=== PATIENT | female | born 1965 | race Caucasian/White ===

== ENCOUNTER → 2016-08-17 | Outpatient (CLI) | payer BC ==
--- NOTE | 2016-08-19 16:05 | CR ---
EXAM DATE: 08/17/16 PATIENT'S AGE: 50 Patient: NANCY ARMSTRONG Facility: [place], [place] Site . Site : 1965 Study: XRay Chest [id number]/28/2017 9:00:15 AM Ordering Physician: Yogesh Mcdonnell Final Report: CLINICAL INDICATION: Asthma. Comparison: 10/26/2015. Findings: There is a small cluster of calcified granulomata within the left upper lobe. The lungs are otherwise clear. The heart is normal in size. The pulmonary vasculature and pleural surfaces appear normal. There is mild degenerative spurring of the mid and lower thoracic spine. Impression: No acute process identified. Dictated by Jake Robert MD @ Aug 17 2016 9:10AM (Electronic Signature) Report Signed by Proxy. RADHA
== END ==
LOC: MW.CHFP 08:32
PROVIDERS: ATTEND Family Medicine
DX: J45.909 Unspecified asthma, uncomplicated (principal)
CPT/HCPCS: 71020; 71020-26

== ENCOUNTER 2017-01-04 10:43 | Day surgery (SDC) | payer BC ==
[~2017-01-04 10:43] MED LIST: Lactated Ringers 1,000 ML IV SCH; Midazolam 1 MG/ML 2 ML SDV ONE; Propofol 200 MG/20 ML SDV ONE
--- NOTE | 2017-01-04 11:31 | PCM.PREANE ---
Preanesthetic Assessment - Anesthesia/Transfusion/Family Hx Anesthesia History: Prior Anesthesia Without Reaction Family History of Anesthesia Reaction: No Transfusion History: No Prior Transfusion(s) - Review of Systems General: No Symptoms Pulmonary: No Symptoms Cardiovascular: No Symptoms Gastrointestinal: No Symptoms Neurological: No Symptoms Other: Reports: None - Physical Assessment NPO Status Date: 01/03/17 O2 Sat by Pulse Oximetry: 98 Respiratory Rate: 14 Vital Signs: Last Vital Signs Temp 36 C 01/04/17 10:54 Pulse 92 01/04/17 10:54 Resp 14 01/04/17 10:54 BP 128/70 01/04/17 10:54 Pulse Ox 98 01/04/17 10:54 Height: 1.65 m Weight: 67.132 kg ASA Class: 2 Mental Status: Alert & Oriented x3 Airway Class: Mallampati = 2 Dentition: Reports: Normal Dentition ROM/Head Extension: Full Lungs: Clear to Auscultation, Normal Respiratory Effort Cardiovascular: Regular Rate, Regular Rhythm - Allergies Allergies/Adverse Reactions: Allergies Allergy/AdvReac Type Severity Reaction Status Date / Time No Known Allergies Allergy Verified 10/20/13 13:48 - Anesthesia Plan Pre-Op Medication Ordered: None - Acknowledgements Anesthesia Type Planned: MAC Pt an Appropriate Candidate for the Planned Anesthesia: Yes Alternatives and Risks of Anesthesia Discussed w Pt/Guardian: Yes Pt/Guardian Understands and Agrees with Anesthesia Plan: Yes PreAnesthesia Questionnaire - Past Health History Medical/Surgical History: Denies Medical/Surgical History HEENT History: Reports: Other (See Below) Other HEENT History: wears glasses, chronic sinusitis Gastrointestinal History: Reports: None Genitourinary History: Reports: None 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: Psychiatric History: Reports: Anxiety - Past Surgical History Head Surgeries/Procedures: Reports: None GI Surgical History: Reports: Appendectomy Female Surgical History: Reports: Endometrial Ablation - SUBSTANCE USE Smoking Status *Q: Current Every Day Smoker Tobacco Use Within Last Twelve Months: Cigarettes Second Hand Smoke Exposure: Yes Days Per Week of Alcohol Use: 0 Recreational Drug Use History: No - HOME MEDS Home Medications: Home Meds Biotin 1,000 mcg PO DAILY 01/02/17 [History] Divehi Ginseng Root Extract [Ginseng Extract] 2 tab PO ASDIRECTED 01/02/17 [ History] Multivitamin [One Daily Multivitamin] 1 tab PO DAILY 01/02/17 [History] - CURRENT (IN HOUSE) MEDS Current Meds: Current Medications Lactated Ringer's (Ringers, Lactated) 1,000 mls @ 125 mls/hr IV ASDIRECTED [facility] Last Admin: 01/04/17 11:00 Dose: 125 mls/hr Discontinued Medications Midazolam HCl (Versed 1 Mg/Ml) Confirm Administered Dose 2 mg .ROUTE .STK-MED ONE Stop: 01/04/17 07:15 Propofol (Diprivan 20 Ml) Confirm Administered Dose 400 mg .ROUTE .STK-MED ONE Stop: 01/04/17 07:15
[2017-01-04] MEDS ORDERED: Lidocaine 2% 5 ML SDV ONE (12:40)
[2017-01-04] MEDS ORDERED: Propofol 200 MG/20 ML SDV ONE (13:08)
--- NOTE | 2017-01-04 13:18 | PCM.OPNOTE ---
- General Post-Op/Procedure Note Date of Surgery/Procedure: 01/04/17 Operative Procedure(s): Colonoscopy Pre Op Diagnosis: Desire for colorectal cancer screening Post-Op Diagnosis: No evidence of neoplasia Anesthesia Technique: MAC (ASA II) Primary Surgeon: Michael Jama Director Dance: Liliana Hernandez Condition: Good Free Text/Narrative:: Dictation [id number] CPT CODE [id number]
--- NOTE | 2017-01-04 13:27 | PCM.POSTAN ---
POST ANESTHESIA ASSESSMENT - MENTAL STATUS Mental Status: Alert, Oriented - RESPIRATORY Respiratory Status: Respiratory Rate WNL, Airway Patent, O2 Saturation Stable - CARDIOVASCULAR CV Status: Pulse Rate WNL, Blood Pressure Stable - GASTROINTESTINAL GI Status: No Symptoms - POST OP HYDRATION Hydration Status: Adequate & Stable
--- NOTE | 2017-01-04 13:28 | PCM48HPAN ---
Post Anesthesia Note - EVALUATION WITHIN 48HRS OF ANESTHETIC Vital Signs in Normal Range: Yes Patient Participated in Evaluation: Yes Respiratory Function Stable: Yes Airway Patent: Yes Cardiovascular Function Stable: Yes Hydration Status Stable: Yes Pain Control Satisfactory: Yes Nausea and Vomiting Control Satisfactory: Yes Mental Status Recovered: Yes
[2017-01-04] MEDS ORDERED: Lactated Ringers 1,000 ML IV SCH (13:30)
--- NOTE | 2017-01-04 13:59 | PCM.SN ---
- Free Text/Narrative Note: pt c/o L eye pain since awakening. has lateral schleral/conjunctival irritation , lids everted. no fb/lash visible. No gross abraision noted to gross inspr= ection. No fluroscein exam done. advised should heal in 24 hr. should be seen in 24 hr if not gone. offered antibiotic ointment, declined.
--- NOTE | 2017-01-04 18:51 | OR ---
SURGEON: Michael Jama M.D. DATE OF PROCEDURE: 01/04/2017 OPERATION PERFORMED: Colonoscopy. ANESTHESIA: MAC. ASA CLASSIFICATION: II. PREOPERATIVE DIAGNOSIS: Desire for colorectal cancer screening. POSTOPERATIVE DIAGNOSIS: No evidence of neoplasia. DESCRIPTION OF PROCEDURE: The patient was taken to the endoscopy room and positioned on the endoscopy table in the left lateral decubitus position. Time-out was called for appropriate identification of patient and procedure. Monitored anesthesia care was provided. The colonoscope was inserted into the rectum and advanced without difficulty to the cecum where the colonoscope was retroflexed to visualize the ascending colon from below. The colonoscope was then straightened and slowly withdrawn. The cecum, ascending colon, hepatic flexure, transverse colon, splenic flexure, descending colon, sigmoid colon, and rectum were very well visualized. No tumors, polyps, diverticula, or angiodysplastic changes were identified. There was no evidence of inflammatory bowel disease. Once the colonoscope was withdrawn to the rectum, it was retroflexed to visualize the anal orifice from above. No tumors or polyps were seen and there were no acute hemorrhoidal changes. The colonoscope was then straightened, the rectum aspirated, and the colonoscope removed. The patient tolerated the procedure well and was taken to recovery room in stable condition. CHELITA / LAXMI /[id number]
== END 2017-01-04 13:44 | disposition home or self-care (01) ==
LOC: MW.SDS 10:43
PROVIDERS: ATTEND Surgery
PROC: 0DJD8ZZ Inspection of Lower Intestinal Tract, Via Natural or Artificial Opening Endoscopic (ICD-10-PCS; principal; 2017-01-04)
DX: Z12.11 Encounter for screening for malignant neoplasm of colon (principal); J30.9 Allergic rhinitis, unspecified; L65.9 Nonscarring hair loss, unspecified; E78.5 Hyperlipidemia, unspecified; M85.849 Other specified disorders of bone density and structure, unspecified hand; J32.9 Chronic sinusitis, unspecified; Z79.899 Other long term (current) drug therapy; Z79.52 Long term (current) use of systemic steroids; F41.9 Anxiety disorder, unspecified; Z98.890 Other specified postprocedural states; F17.210 Nicotine dependence, cigarettes, uncomplicated
CPT/HCPCS: 45378; J2250; J7120; 00810; J2704

== ENCOUNTER 2020-06-09 17:05 | Emergency (ER) | payer BC ==
[2020-06-09] MEDS ORDERED: Sodium Chloride 0.9% 10 ML Syringe FLUSH PRN (18:02)
[2020-06-09] MEDS ORDERED: Sodium Chloride 0.9% 2.5 ML Syringe FLUSH PRN (18:02)
[2020-06-09 18:42] LABS: BLOOD UREA NITROGEN,BUN 9 mg/dL (7.0-18.0); CARBON DIOXIDE,CO2 23.2 mmol/L (21.0-32.0); CHLORIDE,CL 93 mmol/L (98-107); GLUCOSE RANDOM 86 mg/dL (74-106); POTASSIUM,K 3.1 mmol/L (3.5-5.1); SODIUM,NA 130 mmol/L (136-145)
--- NOTE | 2020-06-09 19:04 | EDM.PDOC ---
ED HPI GENERAL MEDICAL PROBLEM - General Chief Complaint: ENT Problem Stated Complaint: SWOLLEN LYMPH NODES Time Seen by Provider: 06/09/20 17:29 Source of Information: Reports: Patient History Limitations: Reports: No Limitations - History of Present Illness INITIAL COMMENTS - FREE TEXT/NARRATIVE: HISTORY AND PHYSICAL: History of present illness: Patient is 54-year-old female presenting with swelling around right cheek that started today after eating a cookie. She reports the pain is worse with touching the area or eating. Patient reports salivary stones on the right side last occurring 15 years ago. Patient also reports MICHELLE for which she takes an unknown "antidepressant." Patient's surgical history is significant for wisdom teeth removal on the right side and deviated septum repair "a long time ago." Patient reports using warm compresses and "8 Aleve today" without palliation of pain. Patient denies fever, chills, chest pain, shortness of breath, or cough. Denies headache, neck stiff ness, change in vision, syncope, or near syncope. Denies nausea, vomiting, abdominal pain, diarrhea, constipation, or dysuria. Has not noted any blood in urine or stool. Patient has been eating and drinking appropriately. Review of systems: As per history of present illness and below otherwise all systems reviewed and negative. Past medical history: As per history of present illness and as reviewed below otherwise noncontributory. Surgical history: As per history of present illness and as reviewed below otherwise noncontributory. Social history: See social history for further information Family history: As per history of present illness and as reviewed below otherwise noncontributory. Physical exam: General: Patient is alert, oriented, and in no acute distress. Patient sitting comfortably on exam table. Vitals are significant for slight hypertension, otherwise, stable and reviewed by me HEENT: There is mild-moderate edema of the preauricular area that extends down into the mandible that is tender to palpation. Atraumatic, normocephalic, pupils equal and reactive bilaterally, negative for conjunctival pallor or scleral icterus, mucous membranes moist, uvula midline, TMs normal bilaterally, negative pain with ROM of the right auricle / palpation of the tragus, negative mastoid tenderness bilaterally, throat clear, neck supple and nontender, trachea midline. No drooling or trismus noted. No meningeal signs. No hot potato voice noted. Lungs: Clear to auscultation, breath sounds equal bilaterally, chest nontender. Heart: S1S2, regular rate and rhythm without overt murmur Abdomen: Soft, nondistended, nontender. Negative for masses or hepatosplenomegaly. Negative for costovertebral tenderness. Genitourinary: Deferred. Rectal: Deferred. Skin: Intact, warm, dry. No lesions or rashes noted. Extremities: Atraumatic, negative for cords or calf pain. Neurovascular unremarkable. Neuro: Awake, alert, oriented. Cranial nerves II through XII unremarkable. Cerebellum unremarkable. Motor and sensory unremarkable throughout. Exam nonfocal. Notes: Patient was given an antibiotic cephalosporin by her primary care provider today and has an appointment tomorrow with her primary care provider. Signs and symptoms that were prompt return to the ED thoroughly discussed with patient. Discussed importance for follow-up with her primary care provider for repeat lab work in the environmental research project manager if symptoms persist. Voices understanding and is agreeable to plan of care. Denies any further questions or concerns at this time. Diagnostics: Soft tissue neck CT with contrast, CBC, CMP Therapeutics: NS, Potassium Prescription: None Impression: Sialoadenitis Hypokalemia Plan: 1. Use fymi-ela-[id number] sour/tart candies to promote salivation as discussed. Continue to rub the area as discussed. 2. Follow-up with your primary care provider/the environmental research project manager as discussed. Repeat labwork as discussed. 3. You can alternate ibuprofen and Tylenol as directed for pain and discomfort. Return to the ED as needed and as discussed. Definitive disposition and diagnosis as appropriate pending reevaluation and review of above. throat Pain Score (Numeric/FACES): 7 - Related Data Allergies Allergy/AdvReac Type Severity Reaction Status Date / Time No Known Allergies Allergy Verified 10/20/13 13:48 Home Meds: Home Meds Biotin 1,000 mcg PO DAILY 01/02/17 [History] Multivitamin [One Daily Multivitamin] 1 tab PO DAILY 01/02/17 [History] Panax Ginseng Root Extract [Ginseng Extract] 2 tab PO ASDIRECTED 01/02/17 [History] Past Medical History - Past Health History Medical/Surgical History: Denies Medical/Surgical History HEENT History: Reports: Other (See Below) Other HEENT History: wears glasses, chronic sinusitis Gastrointestinal History: Reports: None Genitourinary History: Reports: None 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 ED EXAM, GENERAL - Physical Exam Exam: See Below (see dictation) Course - Vital Signs Last Recorded V/S: Last Vital Signs Temp 97 F 06/09/20 17:27 Pulse 97 06/09/20 17:27 Resp 16 06/09/20 17:27 BP 143/81 H 06/09/20 17:27 Pulse Ox 98 06/09/20 17:27 - Orders/Labs/Meds Orders: Active Orders 24 hr Category Date Time Status Sodium Chloride 0.9% [Normal Saline] 1,000 ml Med 06/09/20 19:16 Active IV STAT Sodium Chloride 0.9% [Saline Flush] Med 06/09/20 18:02 Active 10 ml FLUSH ASDIRECTED PRN Sodium Chloride 0.9% [Saline Flush] Med 06/09/20 18:02 Active 2.5 ml FLUSH ASDIRECTED PRN Saline Lock Insert [OM.PC] Stat Oth 06/09/20 18:02 Ordered Medication Orders Sodium Chloride (Normal Saline) 1,000 mls @ 999 mls/hr IV STAT ONE Stop: 06/09/20 20:16 Last Admin: 06/09/20 19:26 Dose: 999 mls/hr Documented by: CHAZ Sodium Chloride (Saline Flush) 10 ml FLUSH ASDIRECTED PRN PRN Reason: Keep Vein Open Sodium Chloride (Saline Flush) 2.5 ml FLUSH ASDIRECTED PRN PRN Reason: Keep Vein Open Labs: Laboratory Tests 06/09/20 06/09/20 Range/Units 18:05 18:05 WBC 9.57 (4.0-11.0) K/uL RBC 4.22 L (4.30-5.90) M/uL Hgb 13.6 (12.0-16.0) g/dL Hct 38.8 (36.0-46.0) % MCV 91.9 (80.0-98.0) fL MCH 32.2 H (27.0-32.0) pg MCHC 35.1 (31.0-37.0) g/dL RDW Std Deviation 45.6 (28.0-62.0) fl RDW Coeff of James 14 (11.0-15.0) % Plt Count 296 (150-400) K/uL MPV 9.40 (7.40-12.00) fL Neut % (Auto) 53.4 (48.0-80.0) % Lymph % (Auto) 36.9 (16.0-40.0) % [place] % (Auto) 7.2 (0.0-15.0) % Eos % (Auto) 2.1 (0.0-7.0) % Baso % (Auto) 0.4 (0.0-1.5) % Neut # (Auto) 5.1 (1.4-5.7) K/uL Lymph # (Auto) 3.5 H (0.6-2.4) K/uL [place] # (Auto) 0.7 (0.0-0.8) K/uL Eos # (Auto) 0.2 (0.0-0.7) K/uL Baso # (Auto) 0.0 (0.0-0.1) K/uL Nucleated RBC % 0.0 /100WBC Nucleated RBCs # 0 K/uL Sodium 130 L (136-145) mmol/L Potassium 3.1 L (3.5-5.1) mmol/L Chloride 93 L (98-107) mmol/L Carbon Dioxide 23.2 (21.0-32.0) mmol/L BUN 9 (7.0-18.0) mg/dL Creatinine 0.6 (0.6-1.0) mg/dL Est Cr Clr Drug Dosing 100.34 mL/min Estimated GFR (MDRD) > 60.0 ml/min Glucose 86 (74-106) mg/dL Calcium 8.7 (8.5-10.1) mg/dL Total Bilirubin 0.3 (0.2-1.0) mg/dL AST 21 (15-37) IU/L ALT 26 (14-63) IU/L Alkaline Phosphatase 58 (46-116) U/L Total Protein 6.6 (6.4-8.2) g/dL Albumin 3.5 (3.4-5.0) g/dL Globulin 3.1 (2.6-4.0) g/dL Albumin/Globulin Ratio 1.1 (0.9-1.6) Meds: Medications Generic Name Dose Route Start Last Admin Trade Name Freq PRN Reason Stop Dose Admin Sodium Chloride 1,000 mls @ 999 mls/hr 06/09/20 19:16 06/09/20 19:26 Normal Saline IV 06/09/20 20:16 999 mls/hr STAT ONE Administration Sodium Chloride 10 ml 06/09/20 18:02 Saline Flush FLUSH ASDIRECTED PRN Keep Vein Open Sodium Chloride 2.5 ml 06/09/20 18:02 Saline Flush FLUSH ASDIRECTED PRN Keep Vein Open Discontinued Medications Generic Name Dose Route Start Last Admin Trade Name Freq PRN Reason Stop Dose Admin Iopamidol 75 ml 06/09/20 19:10 06/09/20 19:13 Isovue Multipack-370 (76%) IVPUSH 06/09/20 19:11 75 ml ONETIME STA Administration Potassium Chloride 40 meq 06/09/20 19:08 06/09/20 19:26 Klor-Con M20 PO 06/09/20 19:09 40 meq ONETIME ONE Administration Departure - Departure Time of Disposition: 20:00 Disposition: Home, Self-Care 01 Clinical Impression: Sialoadenitis - Discharge Information Referrals: Lois Moses NP [Primary Care Provider] - Forms: ED Department Discharge Additional Instructions: The following information is given to patients seen in the emergency department who are being discharged to home. This information is to outline your options for follow-up care. We provide all patients seen in our emergency department with a follow-up referral. The need for follow-up, as well as the timing and circumstances, are variable depending upon the specifics of your emergency department visit. If you don't have a primary care physician on staff, we will provide you with a referral. We always advise you to contact your personal physician following an emergency department visit to inform them of the circumstance of the visit and for follow-up with them and/or the need for any referrals to a consulting specialist. The emergency department will also refer you to a specialist when appropriate. This referral assures that you have the opportunity for follow-up care with a specialist. All of these measure are taken in an effort to provide you with optimal care, which includes your follow-up. Under all circumstances we always encourage you to contact your private physician who remains a resource for coordinating your care. When calling for follow-up care, please make the office aware that this follow-up is from your recent emergency room visit. If for any reason you are refused follow-up, please contact the [facility] Emergency Department at and asked to speak to the emergency department charge nurse. [facility] [address] [place] [address] [address] [facility] Ears, Nose, and Throat Specialist, Dr. Napoleon Rhodes [phone] [facility] [address] 1. Use ehsi-oel-bwmmekv sour/tart candies to promote salivation as discussed. Continue to rub the area as discussed. 2. Follow-up with your primary care provider/the environmental research project manager as discussed. Repeat labwork as discussed. 3. You can alternate ibuprofen and Tylenol as directed for pain and discomfort. Return to the ED as needed and as discussed. Sepsis Event Note (ED) - Evaluation Sepsis Screening Result: No Definite Risk - Focused Exam Vital Signs: Vital Signs Temp Pulse Resp BP Pulse Ox 06/09/20 17:27 97 F 97 16 143/81 H 98 - My Orders Last 24 Hours: My Active Orders 06/09/20 18:02 Sodium Chloride 0.9% [Saline Flush] 10 ml FLUSH ASDIRECTED PRN Sodium Chloride 0.9% [Saline Flush] 2.5 ml FLUSH ASDIRECTED PRN Saline Lock Insert [OM.PC] Stat 06/09/20 19:16 Sodium Chloride 0.9% [Normal Saline] 1,000 ml IV STAT - Assessment/Plan Last 24 Hours: My Active Orders 06/09/20 18:02 Sodium Chloride 0.9% [Saline Flush] 10 ml FLUSH ASDIRECTED PRN Sodium Chloride 0.9% [Saline Flush] 2.5 ml FLUSH ASDIRECTED PRN Saline Lock Insert [OM.PC] Stat 06/09/20 19:16 Sodium Chloride 0.9% [Normal Saline] 1,000 ml IV STAT
[2020-06-09] MEDS ORDERED: Potassium Chloride 20 MEQ Tab.ER PO ONE (19:08)
[2020-06-09] MEDS ORDERED: Iopamidol 755 MG/ML 500 ML Multipack Bottle IVPUSH STA (19:10)
[2020-06-09] MEDS ORDERED: Sodium Chloride 0.9% 1,000 ML IV ONE (19:16)
--- NOTE | 2020-06-09 19:53 | CT ---
INDICATION: Edema to right-sided mastoid extending into the neck. COMPARISON: None. TECHNIQUE: CT of the neck soft tissue with 75 cc Isovue 370 IV contrast. Coronal and sagittal reconstructions. FINDINGS: There is mild subcutaneous edema in the right lateral cheek overlying the inferior aspect of the right parotid gland and extending inferiorly to the level of the right chin. No focal fluid collection to suggest abscess. There is a 3 mm calculus within a focally dilated parotid duct in the posterior aspect of the right parotid gland (series 201, image 55). There is a prominent asymmetric vessel coursing through the right parotid gland. No significant hyperenhancement of the right parotid gland relative to the left. Findings likely represent sialoadenitis. Mildly prominent hyperenhancing right level 2 cervical lymph node measuring 9 mm in short axis (series 201, image 82). This is likely reactive. No other lymphadenopathy. The paranasal sinuses and mastoid air cells are clear. The nasopharynx, oropharynx, larynx, and subglottic trachea are normal in appearance. The submandibular glands are normal in size with uniform enhancement. Visualized intracranial contents are unremarkable. Cervical vasculature is grossly patent. The cervical spine is negative. The thyroid gland is of normal size and has uniform density. Calcified granuloma in the left upper lobe. The lung apices are otherwise clear. IMPRESSION: 1. 3 mm stone within a focally dilated parotid duct in the posterior aspect of the right parotid gland, with mild overlying subcutaneous edema. Findings most likely represent sialoadenitis. 2. No focal fluid collection to suggest abscess. 3. Single mildly prominent right level 2 cervical lymph node is likely reactive. Please note that all CT scans at this facility use dose modulation, iterative reconstruction, and/or weight-based dosing when appropriate to reduce radiation dose to as low as reasonably achievable. Dictated by Aga Flores MD @ Jun 09 2020 7:33PM Signed by Dr. Aga Flores @ Jun 09 2020 7:51PM
== END 2020-06-09 20:06 | disposition home or self-care (01) ==
LOC: MW.ED 17:05
DX: K11.20 Sialoadenitis, unspecified (principal); E87.6 Hypokalemia; Z72.0 Tobacco use
CPT/HCPCS: 70491; 80053; 85025; 99284; A9270; J7030; Q9967; 99283

== ENCOUNTER 2024-10-26 12:34 | Emergency (ER) | payer BC ==
[2024-10-26 14:19] LABS: BASOPHILS ABSOLUTE AUTO 0.06 K/uL (0.00-0.20); BASOPHILS PERCENT AUTO 0.5 % (0.0-1.0); EOSINOPHILS ABSOLUTE AUTO 0.07 K/uL (0.00-0.45); EOSINOPHILS PERCENT AUTO 0.6 % (0.0-6.0); IMMATURE GRAN ABSOLUTE AUTO 0.04 K/uL (0.00-0.05); IMMATURE GRAN PERCENT AUTO 0.3 % (0.0-0.4); LYMPHOCYTES ABSOLUTE AUTO 2.88 K/uL (1.00-4.80); LYMPHOCYTES PERCENT AUTO 24.4 % (24.0-44.0); MEAN PLATELET VOLUME 9.1 fL (9.4-12.3); MONOCYTES ABSOLUTE AUTO 0.75 K/uL (0.00-0.80); MONOCYTES PERCENT AUTO 6.4 % (0.0-8.0); NEUTROPHILS ABSOLUTE AUTO 7.98 K/uL (1.80-7.70); NEUTROPHILS PERCENT AUTO 67.8 % (41.0-71.0); NRBC ABSOLUTE 0.00 K/uL (0.00-0.02); NRBC PERCENT 0.0 /100WBC (0.0-0.2); PLATELET COUNT,PLT 295 K/uL (150-400); RED BLOOD CELL COUNT 4.70 M/uL (4.10-5.30); WHITE BLOOD CELL COUNT,WBC 11.78 K/uL (3.9-11.3)
[2024-10-26 14:44] LABS: A/G RATIO 1.3 (0.9-1.6); ALANINE AMINOTRANSFERASE,ALT 29.0 IU/L (14-63); ASPARTATE AMNIOTRANSFERASE,AST 25.0 IU/L (15-37); BILIRUBIN TOTAL 0.3 mg/dL (0.2-1.0); BLOOD UREA NITROGEN,BUN 9.0 mg/dL (7.0-18.0); CARBON DIOXIDE,CO2 25.0 mmol/L (21.0-32.0); CHLORIDE,CL 101.0 mmol/L (98-107); CREATININE 0.6 mg/dL (0.6-1.0); EST CRCL DRUG DOSING (CG) 87.18 mL/min; GLUCOSE RANDOM 88.0 mg/dL (74-106); POTASSIUM,K 3.5 mmol/L (3.5-5.1); PROTEIN TOTAL,TP 7.0 g/dL (6.4-8.2); SODIUM,NA 138.0 mmol/L (136-145)
[2024-10-26 14:45] LABS: ESTIMATED GFR 103.0 mL/min (>60)
== END 2024-10-26 15:33 | disposition home or self-care (01) ==
LOC: MW.ED 12:34
DX: I10 Essential (primary) hypertension (principal); Z75.3 Unavailability and inaccessibility of health-care facilities; Z79.899 Other long term (current) drug therapy
CPT/HCPCS: 36415; 80053; 84484; 85025; 93005; 93010; 99284; 99285